=== PATIENT | male | born 1985 | race African-American/Black ===

== ENCOUNTER 2019-12-20 08:19 | Emergency (ER) | payer MEDICAID ==
[~2019-12-20] VITALS: Ht 185.4 cm; Wt 103.4 kg
[2019-12-20 08:24] VITALS: Ht 185.4 cm; Wt 103.4 kg
[2019-12-20 09:32] LABS: BASOPHIL % 0.5 % (0-2); PLATELET COUNT 260 x10^3mcL (130-400); RED CELL DISTRIBUTION WIDTH 12.9 % (11.5-14.5)
[2019-12-20 10:39] LABS: CALCIUM 9.3 mg/dL (8.5-10.1); CARBON DIOXIDE 24.7 mmol/L (21-32); CHLORIDE SERUM 103 mmol/L (98-107); CREATININE SERUM 1.3 mg/dL (0.7-1.3); GFR1 > 60 mL/min; GLUCOSE SERUM 86 mg/dL (74-106); POTASSIUM SERUM 3.8 mmol/L (3.5-5.1); SODIUM SERUM 138 mmol/L (136-145)
[2019-12-20 10:50] LABS: ALBUMIN 4.1 g/dL (3.4-5.0); ALKALINE PHOSPHATASE 96 U/L (46-116); ALT/SGPT 23 U/L (16-63); AST/SGOT 13 U/L (15-37); BILIRUBIN TOTAL 0.7 mg/dL (0.20-1.00); LIPASE 165 IU/L (73-393); TOTAL PROTEIN, SERUM 7.8 g/dL (6.4-8.2)
[2019-12-20 11:53] VITALS: BP 142/72
== END 2019-12-20 11:53 | disposition home or self-care (01) ==
LOC: ED 08:19
PROVIDERS: Emergency Medicine
DX: E86.0 Dehydration (principal); R11.10 Vomiting, unspecified
CPT/HCPCS: J2270; J2405

== ENCOUNTER 2019-12-23 06:46 | Emergency (ER) | payer MEDICAID ==
[~2019-12-23] VITALS: Ht 185.4 cm; Wt 102.1 kg
[2019-12-23 06:52] VITALS: Ht 185.4 cm; Wt 102.1 kg
[2019-12-23 07:25] LABS: BASOPHIL % 0.4 % (0-2); PLATELET COUNT 251 x10^3mcL (130-400); RED CELL DISTRIBUTION WIDTH 12.9 % (11.5-14.5)
[2019-12-23 07:30] LABS: CALCIUM 8.9 mg/dL (8.5-10.1); CARBON DIOXIDE 28.2 mmol/L (21-32); CHLORIDE SERUM 101 mmol/L (98-107); CREATININE SERUM 1.3 mg/dL (0.7-1.3); GFR1 > 60 mL/min; GLUCOSE SERUM 90 mg/dL (74-106); POTASSIUM SERUM 3.5 mmol/L (3.5-5.1); SODIUM SERUM 138 mmol/L (136-145)
[2019-12-23 07:35] LABS: ALKALINE PHOSPHATASE 92 U/L (46-116); ALT/SGPT 28 U/L (16-63); AMYLASE 65 U/L (25-115); AST/SGOT 18 U/L (15-37); BILIRUBIN TOTAL 1.1 mg/dL (0.20-1.00); LIPASE 280 IU/L (73-393); TOTAL PROTEIN, SERUM 7.6 g/dL (6.4-8.2)
[2019-12-23 08:57] VITALS: BP 121/65
== END 2019-12-23 08:57 | disposition home or self-care (01) ==
LOC: ED 06:46
PROVIDERS: Emergency Medicine
DX: K59.00 Constipation, unspecified (principal)
CPT/HCPCS: J1630; J1885; Q0092